=== PATIENT | male | born 2000 | race African-American/Black ===

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

== ENCOUNTER 2024-11-04 21:45 | Emergency (ER) | payer MEDICAID ==
[~2024-11-04] VITALS: Ht 175.3 cm; Wt 71.0 kg
[2024-11-04 22:09] VITALS: BP 134/79; PULSE 72; RESP 18; TEMP 97.3; O2SAT 97
--- NOTE | 2024-11-04 22:11 | ED.PDOC ---
History of Present Illness(SKN HPI Comments 24-YEAR-OLD MALE PRESENTS TO THE ED CHIEF COMPLAINT BILATERAL FOOT BLISTERS. PATIENT REPORTS WAS RUNNING BAREFOOT ON HOT FALL TODAY HE NOTES SOME DISCOMFORT 3/10 ON PAIN SCALE NOTES NO DRAINAGE FEVERS CHILLS NAUSEA OR VOMITING. HE IS JUST REQUESTING A NOTE FOR WORK AT THIS TIME. HAS BEEN USING [id number] MEDICATIONS WITH RELIEF. Chief Complaint: Extremity Swelling Time Seen by MD: 22:05 Primary Care Provider: JANIK History of Present Illness: Nurses Notes, Medications, Allergies Allergies: Coded Allergies: NO KNOWN ALLERGIES (Unverified , 11/24/16) Information Source: Patient Past Medical History PAST MEDICAL HISTORY: Denies Surgical History: Denies all surgeries Family History Family History: Reviewed,noncontributory to illness, No family hx of Cancer, No family hx of DM, No family hx of Heart radha, No family hx of HTN, No family hx ofKidney radha, No family hx of Liver radha, No family hx of Lung radha, No family hx of Stroke Social History Smoker: Non-Smoker Alcohol: Denies ETOH Use Drugs: Denies Drug Use Lives In: Home Constitutional: denies: chills, diaphoresis, fatigue, fever, malaise, sweats, weakness, others EENTM: denies: blurred vision, double vision, ear bleeding, ear discharge, ear drainage, ear pain, ear ringing, eye pain, eye redness, hearing loss, mouth pain, mouth swelling, nasal discharge, nose bleeding, nose congestion, nose pain, photophobia, tearing, throat pain, throat swelling, voice changes, others Respiratory: denies: cough, hemoptysis, orthopnea, SOB at rest, shortness of breath, SOB with excertion, stridor, wheezing, others Cardiovascular: denies: chest pain, dizzy spells, diaphoresis, Dyspnea on exertion, edema, irregular heart beat, left arm pain, lightheadedness, palpitations, PND, syncope, others Gastrointestinal: denies: abdomen distended, abdominal pain, blood streaked bowels, constipated, diarrhea, dysphagia, difficulty swallowing, hematemesis, melena, nausea, poor appetite, poor fluid intake, rectal bleeding, rectal pain, vomiting, others Genitourinary: denies: burning, dysuria, flank pain, frequency, hematuria, incontinence, penile discharge, penile sore, pain, testicle pain, testicle swelling, urgency, others Neurological: denies: dizziness, fainting, headache, left sided numbness, left sided weakness, numbness, paresthesia, pre-existing deficit, right sided numbness, right sided weakness, seizure, speech problems, tingling, tremors, weakness, others Musculoskeletal: denies: back pain, gout, joint pain, joint swelling, muscle pain, muscle stiffness, neck pain, others Integumetry: reports: wounds (BILATERAL BOTTOM OF FEET); denies: bruises, change in color, change in hair/nails, dryness, laceration, lesions, lumps, ra sh, others Allergic/Immunocompromised: denies: Difficulty Healing, Frequent Infections, Hives, Itching, others Hematologic/Lymphatic: denies: anemia, blood clots, easy bleeding, easy bruising, swollen glands, others Endocrine: denies: excessive hunger, excessive sweating, excessive thirst, excessive urination, flushing, intolerance to cold, intolerance to heat, unexplained weight gain, unexplained weight loss, others Psychiatric: denies: anxiety, bipolar disorder, depression, hopeless, panic disorder, schizophrenia, sleepless, suicidal, others Physical Exam General Appearance: No Apparent Distress, Normal HEENT: Pharynx Normal Neck: Full Range of Motion, Non-Tender Respiratory: Chest Non-Tender, Lungs Clear, No Respiratory Distress, Normal Breath Sounds Cardiovascular: No Murmur, Normal Peripheral Pulses, Regular Rate/Rhythm Breast Exam: Deferred Gastrointestinal: Non Tender, Soft Genitalia: Deferred Pelvic: Deferred Rectal: Deferred Extremities: Normal capillary refill, Normal inspection, Normal range of motion, Non-tender, No pedal edema Musculoskeletal : Apperance: Normal Neurologic: Alert, chemical dependency counselor II-XII nml as Tested, No Motor Deficits, Normal Affect, Normal Mood, No Sensory Deficits Cerebellar Function: Normal Reflexes: Normal Skin: Dry, Normal Color, Warm, Wounds (SEVERAL PUCK BLISTERS NOTED ON BILATERAL PALMAR ASPECT OF FEET NO NOTED DRAINAGE TRACE ERYTHEMA STRENGTH SENSORY AND MOTION INTACT POSITIVE PEDAL PULSES) Lymphatic: No Adenopathy Was a procedure done? Was a procedure done?: No Differential Diagnosis (INTG) Differential Diagnosis: Abrasion, Cellulitis Differential Diagnosis: Abscess Time of 1ST Reevaluation: 22:09 Reevaluation 1ST: Unchanged Time of 2ND Reevaluation: 22:09 Reevaluation 2ND: Improved Patient Education/Counseling: Diagnosis, Treatment, Prognosis, Need For Follow Up Family Education/Counseling: No Family Present Departure 1 Departure Time of Disposition: 22:09 Impression: Primary Impression: Blister of foot without infection Qualified Codes: S90.829A - Blister (nonthermal), unspecified foot, initial encounter Disposition: 01 HOME / SELF CARE / HOMELESS Condition: Stable Discharged With: Self Critical Care Note Critical Care Time?: No Stability Stability form required: PHYLLIS Ha Nov 04, 2024 22:11
== END 2024-11-04 22:21 | disposition home or self-care (01) ==
LOC: ER 21:45
DX: S90.822A Blister (nonthermal), left foot, initial encounter (principal); S90.821A Blister (nonthermal), right foot, initial encounter; X58.XXXA Exposure to other specified factors, initial encounter; Y93.02 Activity, running; Y92.89 Other specified places as the place of occurrence of the external cause; Y99.8 Other external cause status